=== PATIENT | male | born 1965 | race Hispanic/Latino ===

== ENCOUNTER 2024-09-30 07:05 | Outpatient (CLI) | payer BC | END 2024-09-30 07:06 | disposition home or self-care (01) | LOC: BICULT 07:05 | PROVIDERS: ATTEND Nurse Practitioner Family | DX: N50.82 Scrotal pain (principal); N43.3 Hydrocele, unspecified; N50.3 Cyst of epididymis; Z87.438 Personal history of other diseases of male genital organs | CPT/HCPCS: 76870; 93976 ==